=== PATIENT | male | born 1945 | race Caucasian/White ===

== ENCOUNTER → 2020-03-20 | Outpatient (CLI) | payer MEDICARE ==
[~2020-03-20] MED LIST: ACET500T68 PO; FAMO-63 PO; HYDR-2145 PO; IOHEXOL 180 MG/ML 10 ML VIAL. ONE; LISI10TA16 PO; LORA10CA PO; LUBI24CA7 PO; MAGN250T10 PO; MULTIVITAMIN; NALO25TA4 PO; OMEG1CAP50 PO; PANT40TA77 PO; POLY17PO29 PO; PSYL0.5215 PO; TAMS0.4C97 PO; TRAM50TA PO; UBID10CA5 PO; methylPREDNISolone ACETATE 40 MG/ML VIAL. ONE; methylPREDNISolone ACETATE 80 MG/ML VIAL. ONE; osteo-biflex
--- NOTE | 2020-03-20 10:35 | PDOC1 ---
INITIAL PAIN CONSULT DATE OF SERVICE: DOS: DATE: 03/20/20 TIME: 10:29 CHIEF COMPLAINT: Chief Complaint: Low back and bilateral lower extremity pain HISTORY OF PRESENT ILLNESS: 74-year-old male presents with history of pain in the low back bilateral lower extremities for about 2 months increasing with time not result of any specific injury or accident that he is aware of. Patient reports the pain is in the low back itself rating the posterior gluteus lateral thighs anterior thighs mostly in the low back patient ports constant with some numbness and tingling radiating to the legs but only with walking and standing patient ports better with sitting or laying down but awakens about twice a night from sleep. Patient reports can affect his bowel and bladder control but he does self cath with his bladder so is unsure if it affects it significantly. Patient reports it does not affect his ability to walk most times but is more noticeable when he is walking. Patient reports has had trigger point injection in the past physical therapy in 2000 exercise since 2007 and continues to do the exercises daily. She did have MRI scan lumbar spine showing generative changes most notable at L4-5 and L5-S1 with mild to moderate central spinal canal stenosis L4-5 with a left foraminal disc protrusion causing left lateral recess stenosis and left L4 nerve root compression also central spinal canal stenosis bilateral lateral recess stenosis and bilateral neuroforaminal stenosis at L5-S1. Patient rates his disability rating 0-10 10 being the worst as a 6 with him home responsibilities recreation social activity 8 with occupation 10 with sexual behavior 0 with self-care and life support activities. Patient is also been taking tramadol 4 tablets a day at 50 mg each for many years also Tylenol both of which do decrease the pain mildly. Patient reports no loss of motor function. PAST MEDICAL HISTORY: PMH: Hypertension, hearing loss, difficulty urinating with neurogenic bladder, arthritis, skin cancers, cigarette smoking quit 1983 PREVIOUS SURGERIES: Past Surgical Hx: Cervical discectomy and fusion 2001, cholecystectomy 2011, tonsillectomy CURRENT MEDICATIONS: Current Meds: Active Scripts Medications Dose Route/Sig Max Daily Dose Days Date Category Dose Instructions Miralax (Polyethylene Glycol 3350) 17 Gm Powd.pack 1 Packet PO DAILY 2 03/20/20 Reported dissolve in water Pepcid (Famotidine) 20 Mg Tablet 20 Mg PO HS 03/20/20 Reported Claritin (Loratadine) 10 Mg Capsule 1 Cap PO DAILY 30 03/20/20 Reported Magnesium (Magnesium Oxide) 250 Mg Tablet 1 Tab PO DAILY 30 03/20/20 Reported Co Q-10 (Ubidecarenone) 10 Mg Capsule 1 Cap PO DAILY 30 03/20/20 Reported Metamucil (Psyllium Husk) 0.52 Gm Capsule 3 Cap PO QHS 30 03/20/20 Reported [osteo-biflex] 03/20/20 Reported [one a day multivut] 1 03/20/20 Reported Fish Oil 1,000 Mg Softgel ([place]-3 Fatty Acids/Fish Oil) 1 Each Capsule 1 Each PO DAILY 03/20/20 Reported Acetaminophen 500 Mg Tablet 1 Tab PO PRN Q6HRS PRN 15 03/20/20 Reported Movantik (Naloxegol Oxalate) 25 Mg Tablet 25 Mg PO DAILY 03/20/20 Reported Amitiza (Lubiprostone) 24 Mcg Capsule 24 Mcg PO DAILY 03/20/20 Reported Flomax (Tamsulosin Hcl) 0.4 Mg Cap.er.24h 1 Cap PO DAILY 03/20/20 Reported Protonix (Pantoprazole Sodium) 40 Mg Tablet.dr 40 Mg PO DAILYAC 03/20/20 Reported Pantoprazole Sodium (Pantoprazole Sodium) 40 Mg Tablet.dr 40 Mg PO DAILYAC 03/20/20 Reported Hydrochlorothiazide Tablet (Hydrochlorothiazide) 25 Mg Tablet 25 Mg PO DAILY 03/20/20 Reported Lisinopril 10 Mg Tablet 1 Tab PO DAILY 03/20/20 Reported Tramadol Hcl 50 Mg Tablet 50 Mg PO Q6HRS PRN 03/20/20 Reported ALLERGIES; Allergies: Coded Allergies: celecoxib (Verified Allergy, Intermediate, rash, 03/20/20) codeine (Verified Allergy, Intermediate, rash, 03/20/20) oxycodone (Verified Allergy, Intermediate, rash, 03/20/20) acetaminophen (Verified Allergy, Unknown, rash, 03/20/20) FAMILY HISTORY: Family Hx: Skin cancers SOCIAL HISTORY: Social Hx: Patient is alcohol about 1-2 drinks a month does not smoke quit 1983, does not use any illegal illicit recreational drugs is lives with his spouse lives locally in [facility] and is retired from the [employer]. REVIEW OF SYSTEMS: ROS: Positive for those items mentioned in history of present illness, all systems are reviewed, otherwise negative, is complete full and well-documented on patient's chart. PHYSICAL EXAM: VS: Blood pressure is 169/93 pulse 81 respirations 18 temperature 98.5 F height is 5 foot 7 inches weight is 187 pounds PE: PHYSICAL EXAMINATION: GENERAL: The patient is awake, alert, oriented, appropriate, very pleasant demeanor HEENT: Shows normocephalic, atraumatic. Extraocular movements are intact and symmetrical. Oral cavity: Mucous membranes moist and pink. Dentition is intact. NECK: Shows anterior throat supple without palpable lymphadenopathy noted. Swallow reflex symmetrical. CHEST: Shows normal on inspection. Breath sounds are clear bilaterally, no rales rhonchi wheezes auscultated. HEART: Shows S1, S2 clear. No murmurs auscultated. ABDOMEN: Soft, nontender, nondistended, obese. No palpable organomegaly is noted. No rebound or guarding demonstrated. BACK: Shows spine grossly in the midline. Normal-appearing cervical lordotic curvature. There is slightly increased thoracic kyphosis, some minor flattening of the lumbar lordotic curvature. Lumbar paraspinous muscles show symmetrical on inspection, on palpation shows some moderate tenderness diffusely throughout the upper, middle and lower distribution of the paraspinous muscles bilaterally and also into the lower thoracic paraspinous musculature, firm and tender, but without specific trigger points, without radiation of pain. The patient has good rotational motion of the lumbar spine, both laterally as well as extension and flexion without significant difficulty. No tenderness over the spinous processes, sacrum or sacroiliac regions. EXTREMITIES: Lower extremities show deep tendon reflexes 1+ in the patellar and tendo calcaneus tendons. Motor exam is 5 on a scale of 5 with right dorsiflexion, extension, quadriceps and hamstring flexion and 5/5 on the left. Peripheral pulses are 1+ posterior tibial. No peripheral edema is noted bilaterally. Lower extremities are warm and dry to touch, equal in color and appearance. Straight leg raise noted to be negative bilaterally. Gaenslen's and Jamal's maneuvers are negative bilaterally as well. The patient is able to stand, stand on her toes without significant difficulty or loss of balance walks with a normal-appearing gait does not appear to favor the right or left lower extremity significantly with a short walk in the office today and not using any assistive devices such as canes or walkers to ambulate. SKIN: Shows warm and dry, good turgor. No edema. No sores, rashes or bruising throughout. IMPRESSION: Impression: 74-year-old male with 6-month history increasing pain low back bilateral lower extremities and radicular fashion MRI scan lumbar spine as noted Hypertension Arthritis Skin cancers history Difficulty urinating with neurogenic bladder and self-catheterization Plan: Options were discussed with the patient including conservative medical management is continued physical therapies and interventional techniques. Patient would like to pursue interventional techniques. We discussed a lumbar epidural steroid injection using description as well as anatomical model to describe the procedure. Risks were discussed including but not limited to: Bleeding, infection, possibility of epidural hematoma and subsequent neurological compromise, dural puncture, headaches, spinal cord and/or nerve damage, side effects of steroid medication, and poor results regarding pain control. Patient understands wished to proceed. Patient will return to clinic in approximate 2 weeks for follow-up was counseled as return appointment activity level, and side effects to be aware of. Procedure is lumbar epidural steroid injection under local anesthetic using sterile prep and drape at the L4-5 level using C-arm fluoroscopic guidance in both AP and lateral views medications injected is 120 mg Depo-Medrol + 10 mL preservative-free normal saline and 2 mL contrast- condition at discharge is stable patient tolerated procedure well had no complications. RUPALI MIRANDA MD Mar 20, 2020 10:35
== END | disposition home or self-care (01) ==
LOC: PNCL 09:00
PROVIDERS: ATTEND Anesthesiology
DX: M54.5 Low back pain (principal); M79.605 Pain in left leg; M79.604 Pain in right leg; I10 Essential (primary) hypertension; M19.90 Unspecified osteoarthritis, unspecified site; Z85.828 Personal history of other malignant neoplasm of skin; Z87.891 Personal history of nicotine dependence; Z90.49 Acquired absence of other specified parts of digestive tract; Z98.890 Other specified postprocedural states; Z88.1 Allergy status to other antibiotic agents; Z88.5 Allergy status to narcotic agent; Z88.8 Allergy status to other drugs, medicaments and biological substances; Z79.899 Other long term (current) drug therapy
CPT/HCPCS: 62323; J1030; J1040; Q9965

== ENCOUNTER → 2020-04-03 | Outpatient (CLI) | payer MEDICARE ==
--- NOTE | 2020-04-03 09:58 | PDOC ---
Progress Note - Pain Clinic Date of Service: DOS: DATE: 04/03/20 TIME: 09:56 Diagnosis: Dx: Lumbar radiculopathy with lumbar degenerative disc disease and lumbar spinal stenosis History or Present Illness: HPI: 74-year-old male returns follow-up status post lumbar epidural steroid action x1. Patient reports near 100% improvement until he fell about 3 days ago tripped over a plastic container that he did not see in front of him and fell on his right side with pain in the low back now returning but not nearly to the point it was prior to his first visit. Patient reports he is doing much better increase distance walking doing household activities walking travel with greater ease and comfort patient reports his pain is been an 8 on a scale of 10 is worse over the past week after the fall 5 its average 5 its least is a 5 today patient was aching tingling radiating in the low back itself in the bilateral lower extremities mostly the posterior gluteus posterior lateral thighs anterior thighs but most significantly in the low back itself. Patient reports no new motor or sensory deficits no new bowel or bladder incontinence or other complaints. Physical Exam: VS: Blood pressure is 186/94 pulse 67 respirations are 18 temperature 98.1 F weight is 190 pounds PE: PHYSICAL EXAMINATION: GENERAL: The patient is awake, alert, oriented, appropriate, very pleasant demeanor HEENT: Shows normocephalic, atraumatic. Extraocular movements are intact and symmetrical. Oral cavity: Mucous membranes moist and pink. NECK: Shows anterior throat supple without palpable lymphadenopathy noted. Swallow reflex symmetrical. CHEST: Shows normal on inspection. Breath sounds are clear bilaterally. HEART: Shows S1, S2 clear. No murmurs auscultated. ABDOMEN: Soft, nontender, nondistended. No palpable organomegaly is noted. No rebound or guarding demonstrated. BACK: Shows spine grossly in the midline. Normal-appearing cervical lordotic curvature. There is increased thoracic kyphosis, some flattening of the lumbar lordotic curvature. Lumbar paraspinous muscles show symmetrical on inspection, on palpation shows some moderate tenderness diffusely throughout the upper, middle and lower distribution of the paraspinous muscles without specific trigger points, without radiation of pain. The patient has good rotational motion of the lumbar spine, both laterally as well as extension and flexion without significant difficulty. EXTREMITIES: Lower extremities show deep tendon reflexes 1+ in the patellar and tendo calcaneus tendons. Motor exam is 5 on a scale of 5 with right dorsiflexion, extension, quadriceps and hamstring flexion and 5/5 on the left. Peripheral pulses are 1+ posterior tibial. No peripheral edema is noted bilaterally. Lower extremities are warm and dry to touch, equal in color and appearance. SKIN: Shows warm and dry, good turgor. No edema. No sores, rashes or bruising throughout. Procedure: Procedure: Options were discussed with the patient. Patient chart reviewed his his current medication regimen updated current review of systems updated today as well. We will proceed with a second in a series lumbar epidural steroid injection today with fluoroscopic guidance. Risks were discussed including but not limited to: Bleeding, infection, possibility of epidural hematoma and subsequent neurological compromise, dural puncture, headaches, spinal cord and/or nerve damage, side effects of steroid medication, and poor results regarding pain control. Patient understands and wished to proceed. Patient return to clinic in approximate 2 weeks for follow-up, was counseled as to return appointment activity level and side effects to be aware of. Medication Injected: Med Injected: Procedure is lumbar epidural steroid injection under local anesthetic using sterile prep and drape at the L4-5 level using C-arm fluoroscopic guidance in both AP and lateral views medications injected is 120 mg Depo-Medrol + 10 mL preservative-free normal saline and 2 mL contrast- condition at discharge is stable patient tolerated procedure well had no complications. Condition at Discharge: Condition at Discharge: Condition at discharge stable, patient tolerated procedure well and had no complications. RUPALI MIRANDA MD Apr 03, 2020 09:58
--- NOTE | 2020-04-03 09:59 | PDOC4 ---
PROCEDURE Procedure Patient was consented for lumbar epidural steroid injection. Risks were dis cussed including but not limited to: Bleeding, infection, possibility of epidural hematoma and subsequent neurological compromise, dural puncture, headaches, spinal cord and/or nerve damage, side effects of steroid medication, and poor results regarding pain control. Patient understands and wished to proceed. Procedure is lumbar epidural steroid injection under local anesthetic using sterile prep and drape at the L4-5 level using C-arm fluoroscopic guidance in both AP and lateral views medications injected is 120 mg Depo-Medrol + 10 mL preservative-free normal saline and 2 mL contrast- condition at discharge is stable patient tolerated procedure well had no complications. RUPALI MIRANDA MD Apr 03, 2020 09:59
== END | disposition home or self-care (01) ==
LOC: PNCL 08:48
PROVIDERS: ATTEND Anesthesiology
DX: M51.16 Intervertebral disc disorders with radiculopathy, lumbar region (principal); M48.061 Spinal stenosis, lumbar region without neurogenic claudication; Z79.899 Other long term (current) drug therapy; Z88.5 Allergy status to narcotic agent; Z88.8 Allergy status to other drugs, medicaments and biological substances
CPT/HCPCS: 62323; J1030; J1040; Q9965

== ENCOUNTER → 2020-04-23 | Outpatient (CLI) | payer MEDICARE ==
[~2020-04-23] MED LIST changes: +BUPIVACAINE MPF 0.25% 10 ML VIAL. ONE
--- NOTE | 2020-04-23 10:33 | PDOC ---
Progress Note - Pain Clinic Date of Service: DOS: DATE: 04/23/20 TIME: 10:27 Diagnosis: Dx: Lumbar radiculopathy with lumbar degenerative disease and lumbar spinal stenosis Bilateral shoulder joint pain with osteoarthritis History or Present Illness: HPI: 74-year-old male returns to follow-up status post lumbar epidural steroid action x2. Patient reports near 100% improvement and has continued to be improved over the past several weeks. Patient reports he can increase his activity with greater ease and comfort walking greater distances doing work activities at home household activities with greater ease and travel with greater ease as well. Patient reports pain has not returned in his low back worse bilateral lower extremities. Patient ports his chief complaint however is the bilateral shoulder joint pain. We had discussed this with him on his last visit he returns today wishing to have some treatment for this as well. Patient has history of "frozen shoulders" and osteoarthritis of the joints as well. Patient rates the pain in the shoulders as an 8 on scale 10 is worse over the past week 6 on average for its least is a 5 today patient reports is tingling and burning in the shoulders worse with repetitive motions worse with lifting items cannot reach over his head because of the pain bilaterally patient reports essentially right equal to left. Patient reports no motor deficits has not been dropping items with significant pain with rotation of motion of the shoulders been waking from sleep at night occasionally but not every night. Patient reports no new motor or sensory deficits no new bowel or bladder or other complaints. Physical Exam: VS: Blood pressure is 156/75 pulse 71 respirations 18 temperature 98.4 F weight is 190 pounds PE: PHYSICAL EXAMINATION: GENERAL: The patient is awake, alert, oriented, appropriate, very pleasant demeanor HEENT: Shows normocephalic, atraumatic. Extraocular movements are intact and symmetrical. NECK: Shows anterior throat supple without palpable lymphadenopathy noted. Swallow reflex symmetrical. CHEST: Shows normal on inspection. Breath sounds are clear bilaterally, no rales or rhonchi. HEART: Shows S1, S2 clear. No murmurs auscultated. ABDOMEN: Soft, nontender, nondistended, obese. No palpable organomegaly is noted. BACK: Shows spine grossly in the midline. Normal-appearing cervical lordotic curvature. Cervical paraspinous muscles show symmetrical inspection on palpation some moderate tenderness diffusely in the inferior aspect the cervical paraspinous muscles bilaterally. Range of motion is slightly limited with extension but without pain right left lateral rotation is performed without significant difficulty. There is slightly increased thoracic kyphosis, some minor flattening of the lumbar lordotic curvature. Lumbar paraspinous muscles show symmetrical on inspection, on palpation shows some moderate tenderness diffusely throughout the upper, middle and lower distribution of the paraspinous muscles, but without specific trigger points, without radiation of pain. The patient has good rotational motion of the lumbar spine, both laterally as well as extension and flexion without significant difficulty. EXTREMITIES: Lower extremities show deep tendon reflexes 1+ in the patellar and tendo calcaneus tendons. Motor exam is 5 on a scale of 5 with right dorsiflexion, extension, quadriceps and hamstring flexion and 5/5 on the left. Peripheral pulses are 1 posterior tibial. No peripheral edema is noted bilaterally. Lower extremities are warm and dry to touch, equal in color and appearance. Upper extremities show deep tendon reflexes 2+ in the bicep triceps tendons, motor exam is strong with automatic embroidery machine tender strength rated 5 out of 5 as is bicep and tricep flexion. Patient has difficulty trying to raise his arms past 90 degrees abduction with significant pain in the anterior aspect of the shoulders bilaterally. Shoulder joint show good rotation passively actively has difficulty past 90 degrees abduction with significant pain bilaterally without radiation. SKIN: Shows warm and dry, good turgor. No edema. No sores, rashes or bruising throughout. Procedure: Procedure: Options were discussed with the patient. Patient chart reviews his current medication regimen updated current review of systems updated today as well. We will proceed with bilateral intra-articular glenohumeral shoulder joint injections today with fluoroscopic guidance. Risks discussed including but not limited to bleeding infection possibility of intravascular injection sequelae spread local anesthetic and numbness side effects steroid medication exposure fluoroscopy and portals regarding pain control. Patient understands wished to proceed. Patient return to clinic in approximately 2 weeks for follow-up was counseled as to return appointment activity level and side effects to be aware of. Medication Injected: Med Injected: Under sterile prep and drape using C-arm fluoroscopic guidance patient's bilateral shoulders were visualized and using 1% lidocaine for topical anesthesia then 22-gauge quickie needle with stylette the joint was entered under direct visualization. Stylet was removed and negative aspiration was confirmed. 1.5 cc of contrast was injected with good spread in the glenohumeral joint without washout. At this time 3 cc of 0.25% bupivacaine and 60 mg Depo- Medrol was injected in each shoulder for a total of 120 mg Depo-Medrol and total of 6 cc 0.25% bupivacaine. Patient tolerated procedure well and had no complications. Condition at Discharge: Condition at Discharge: Condition at discharge is stable, patient tolerated the procedure well and had no complications. RUPALI MIRANDA MD Apr 23, 2020 10:33
--- NOTE | 2020-04-23 10:34 | PDOC4 ---
PROCEDURE Procedure Patient was consented for bilateral intra-articular shoulder joint injections. Risk were discussed including but not limited to bleeding infection possibility of intravascular injection sequelae spread of local anesthetic numbness side effects steroid medication exposure fluoroscopy and portals regarding pain control. Patient understands wished to proceed. Under sterile prep and drape using C-arm fluoroscopic guidance patient's bilateral shoulders were visualized and using 1% lidocaine for topical anesthesia then 22-gauge quickie needle with stylette the joint was entered under direct visualization. Stylet was removed and negative aspiration was confirmed. 1.5 cc of contrast was injected with good spread in the glenohumeral joint without washout. At this time 3 cc of 0.25% bupivacaine and 60 mg Depo- Medrol was injected in each shoulder for a total of 120 mg Depo-Medrol and total of 6 cc 0.25% bupivacaine. Patient tolerated procedure well and had no com plications. RUPALI MIRANDA MD Apr 23, 2020 10:34
== END | disposition home or self-care (01) ==
LOC: PNCL 09:52
PROVIDERS: ATTEND Anesthesiology
DX: M19.012 Primary osteoarthritis, left shoulder (principal); M19.011 Primary osteoarthritis, right shoulder; M51.16 Intervertebral disc disorders with radiculopathy, lumbar region; M48.061 Spinal stenosis, lumbar region without neurogenic claudication; Z79.899 Other long term (current) drug therapy; Z98.890 Other specified postprocedural states; Z88.1 Allergy status to other antibiotic agents; Z88.5 Allergy status to narcotic agent; Z88.8 Allergy status to other drugs, medicaments and biological substances
CPT/HCPCS: 20610; 77002; J1030; J1040; J3490; Q9965